=== PATIENT | female | born 1960 | race Caucasian/White ===

== ENCOUNTER 2017-04-24 19:56 | Emergency (ER) | payer BC ==
[~2017-04-24] VITALS: Ht 152.4 cm; Wt 140.5 kg
[2017-04-24 20:23] VITALS: BP 137/59; PULSE 80; RESP 18; TEMP 98.6
[2017-04-24] MEDS ORDERED: LISI40TA PO (20:36)
[2017-04-24] MEDS ORDERED: MILN50 PO (20:36)
[2017-04-24] MEDS ORDERED: AMLO10TA2 PO (20:36)
[2017-04-24] MEDS ORDERED: CHLO25TA2 PO (20:36)
[2017-04-24] MEDS ORDERED: BUPR100T4 PO (20:36)
--- NOTE | 2017-04-24 21:23 | PD ---
HPI . Fall Chief Complaint: Fall Time Seen by Provider: 20:46 Travel History International Travel<30 days: No Contact w/Intl Traveler<30days: No Traveled to known affect area: No History of Present Illness HPI 57-year-old female presents emergency department via EMS for evaluation after she tripped and fell at a restaurant. Patient extended her left arm to break the fall and has left arm pain now. The left extremity is neurovascularly intact. Patient has an icepack to her left arm. The patient is reluctant to move the left arm from the elbow. Patient denies hitting her head or losing consciousness. Patient arrived spinally immobilized on a backboard. Patient does not have any midline spinal tenderness. Patient states her only pain is in her left arm and the area between her great toe and second digit on her left foot where her flip-flop pressed into she fell. Patient denies any fevers, chills, chest pain, shortness breath, dysuria or hematuria. PFSH Past Medical History Musculoskeletal: Yes (l arm metal plate, r knee replacement, l knee replacement ) Tetanus Vaccination: > 5 Years Influenza Vaccination: No Social History Alcohol Use: No Tobacco Use: No Allergies-Medications (Allergen,Severity, Reaction): Coded Allergies: latex (Verified Allergy, Severe, 04/24/17) oxycodone (Verified Allergy, Severe, Itching, 04/24/17) Uncoded Allergies: monpluei (Allergy, Unknown, 04/24/17) Reported Meds & Prescriptions Reported Meds & Active Scripts Active Reported Amlodipine (Amlodipine Besylate) 10 Mg Tab 10 Mg PO DAILY Lisinopril 40 Mg Tab 40 Mg PO DAILY Chlorthalidone 25 Mg Tab 25 Mg PO DAILY Bupropion HCl 100 Mg Tab 200 Mg PO BID Savella (Milnacipran) 50 Mg Tab 50 Mg PO BID Review of Systems Except as stated in HPI: all other systems reviewed are Neg Physical Exam Narrative GENERAL: Well-nourished, well-developed morbidly obese 57-year-old female patient in no acute respiratory distress. Nontoxic appearing. SKIN: Focused skin assessment warm/dry. HEAD: Normocephalic. Atraumatic. EYES: No scleral icterus. No injection or drainage. NECK: Supple, trachea midline. No JVD or lymphadenopathy. CARDIOVASCULAR: Regular rate and rhythm without murmurs, gallops, or rubs. Radial pulses 2+ bilaterally. RESPIRATORY: Breath sounds equal bilaterally. No accessory muscle use. GASTROINTESTINAL: Abdomen soft, non-tender, nondistended. MUSCULOSKELETAL: Mild edema around left elbow, no ecchymosis or erythema or obvious deformity. BACK: Nontender without obvious deformity. No CVA tenderness. Data Data Last Documented VS Vital Signs Date Time Temp Pulse Resp B/P (MAP) Pulse Ox O2 Delivery O2 Flow Rate FiO2 04/24/17 20:23 98.6 80 18 137/59 (85) Orders Orders Elbow, Complete (4 Vws) (04/24/17 21:06) Forearm (2vws) (04/24/17 21:06) Ice/Cold Pack (04/24/17 21:06) Splint Or Brace Apply/Monitor (04/24/17 22:32) Acetamin-Hydrocod 325-7.5 Mg ([place] 7.5 (04/24/17 22:45) MDM Medical Decision Making Medical Screen Exam Complete: Yes Emergency Medical Condition: Yes Differential Diagnosis Differential diagnoses include but not limited to left arm fracture, left arm sprain, elbow dislocation, fall, contusions Narrative Course 57-year-old female presents emergency department for evaluation after she fell. X-ray of the left arm is ordered and pending. Ice in place to left extremity upper extremity. X-ray of the left arm shows a radial head fracture. Patient case discussed with my attending Dr. Sims and it is recommended that we put a long arm splint and sling to left arm and follow up with orthopedics. Patient will be discharged home with instructions to follow-up with orthopedics. Diagnosis Primary Impression: Closed left arm fracture Qualified Codes: S42.302A - Unspecified fracture of shaft of humerus, left arm , initial encounter for closed fracture Patient Instructions: Arm Fracture in Adults (ED), General Instructions Additional Instructions: Please return to emergency department if your symptoms return or worsen. Follow up with orthopedic doctor next week. Take medications as prescribed. Disposition: 01 DISCHARGE HOME Condition: Stable Sariah Simpson ANISH Apr 24, 2017 21:23
--- NOTE | 2017-04-24 21:57 | RADRPT ---
EXAM DATE/TIME: 04/24/2017 21:14 [facility] COMPARISON: No previous studies available for comparison. INDICATIONS : Fell, complains of left elbow pain. MEDICAL HISTORY : None. SURGICAL HISTORY : Fracture left wrist ENCOUNTER: Initial ACUITY: 1 day PAIN SCORE: 10/10 LOCATION: Left elbow FINDINGS: Multiple view examination of the left elbow demonstrates a nondisplaced fracture through the radial h ead. Although humeral joint is intact. CONCLUSION: Nondisplaced fracture left radial head. Kenneth Perry MD on April 24, 2017 at 21:55 Board Certified Radiologist. This report was verified electronically.
--- NOTE | 2017-04-24 22:08 | RADRPT ---
EXAM DATE/TIME: 04/24/2017 21:14 [facility] COMPARISON: No previous studies available for comparison. INDICATIONS : Fell, complains of left forearm pain. MEDICAL HISTORY : None. SURGICAL HISTORY : Fracture and pinning of left wrist ENCOUNTER: Initial ACUITY: 1 day PAIN SCORE: 10/10 LOCATION: Left forearm FINDINGS: Two view examination of the left forearm demonstrates a nondisplaced fracture of the proximal radial head. The distal radius has undergone previous ORIF with extra medullary plates. The radial and ulnar shafts are intact. CONCLUSION: Nondisplaced fracture of the proximal left radial head. Status post ORIF left distal radius Otherwise intact left radius and ulna Kenneth Perry MD on April 24, 2017 at 22:05 Board Certified Radiologist. This report was verified electronically.
[2017-04-24] MEDS ORDERED: ACETAMINOPHEN/HYDROcodone 325 MG/7.5 MG TAB PO ONE (22:45)
== END 2017-04-24 23:13 | disposition home or self-care (01) ==
LOC: PHEFT 19:56
DX: S42.302A Unspecified fracture of shaft of humerus, left arm, initial encounter for closed fracture (principal); E66.01 Morbid (severe) obesity due to excess calories; W01.0XXA Fall on same level from slipping, tripping and stumbling without subsequent striking against object, initial encounter; Y92.511 Restaurant or cafe as the place of occurrence of the external cause
CPT/HCPCS: 29105; 73080; 73090